=== PATIENT | male | born 1940 | race Caucasian/White ===

== ENCOUNTER → 2017-01-07 10:28 | Outpatient (CLI) | payer MEDICARE, OTHER ==
[~2017-01-07 10:28] MED LIST: AZOR 5-40 MG TA1 TAB PO; CIPRO500 MG PO; COMBIGAN OPHT DR5 ML EACH EYE; COUMADIN5 MG PO; FLAGYL500 MG PO; GLIPIZIDE10 MG PO; GLUCOPHAGE500 MG PO; LIPITOR20 MG PO; ROCEPHIN 1 GM/D51 G1 IV; TOPROL XL50 MG PO; XALATAN 0.0052.5 ML EACH EYE
== END | disposition home or self-care (01) ==
LOC: D.MRI 10:28 → D.LAB 10:45 → D.MRI 10:45
DX: R51 Headache (principal)

== ENCOUNTER → 2018-09-23 10:20 | Outpatient (CLI) | payer MEDICARE, OTHER ==
--- NOTE | ~2018-09-23 | ST ---
PATIENT:YARELIS WALTER MEDICAL RECORD: [id number] SEX: M LOCATION:[facility] ORDER #: ADMISSION DATE: 09/23/18 AGE OF PATIENT: 78 REFERRING PHYSICIAN: INTERPRETING PHYSICIAN: JUNI BRYSON MD DATE OF SERVICE: 09/23/2018 PROCEDURE: Nuclear stress test. INDICATIONS: Angina, shortness of breath, hypertension, abnormal ECG. He was exercised on standard Lexiscan protocol with 33 mCi of sestamibi injected at peak stress, 10 mCi were used previously for rest images. FINDINGS: Gated SPECT reveals preserved ejection fraction at 53% with good wall motion and thickening and brightening throughout all segments. SPECT imaging Cardiolite was used as myocardial fusion agent. There is homogeneous uptake throughout all segments at rest and stress with no evidence of inducible ischemia or previous infarction. OVERALL IMPRESSION: 1. This is a normal nuclear stress test with no evidence of inducible ischemia or previous infarction. 2. Gated SPECT reveals a preserved ejection fraction at 53%. In this patient with ongoing symptomatology, the current scan does not suggest the presence of hemodynamically significant coronary artery disease. Evaluate noncardiac etiology of chest pain. TRANSINT:[id number] Voice Confirmation ID: [id number] DOCUMENT ID: [id number] JUNI BRYSON MD CC: OLIVIA MON [id number] DICTATION DATE: 09/23/18 1606 RETAIL BANKER: 09/24/18 0928 [facility] CLI 09/23/[address] [address]
== END | disposition home or self-care (01) ==
LOC: D.HCCARDIO 10:20
PROVIDERS: ATTEND Internal Medicine Interventional Cardiology
DX: I20.9 Angina pectoris, unspecified (principal)

== ENCOUNTER → 2018-10-05 11:33 | Outpatient (CLI) | payer MEDICARE, OTHER ==
--- NOTE | 2018-10-07 15:03 | EC ---
PATIENT:YARELIS WLATER DATE OF SERVICE: 10/05/18 SEX: M MEDICAL RECORD: [id number] DATE OF : 36 LOCATION:[facility] AGE OF PATIENT: 78 ADMISSION DATE: 10/05/18 REFERRING PHYSICIAN: INTERPRETING PHYSICIAN: JUNI ELISE MD ECHOCARDIOGRAM REPORT ECHO CHARGES 4 ECHO COMPLETE Date: 10/05/18 CLINICAL DIAGNOSIS: ANGINA/MOODY/ABNORMAL EKG H/O A-FIB/HTN ECHOCARDIOGRAPHIC MEASUREMENTS (adult normal given) AC root (d.<3.7cm) 3.4 cm LV Septum d (<1.2 cm> 1.5 cm Valve Excursion 0.7 cm LV Septum (systole) 2.0 cm Left Atria (s.<4.0cm> 5.1 cm LVPW d(<1.2cm) 1.5 cm RV (d.<2.3cm) 3.8 cm LVPW (sytole) 2.1 cm LV diastole(<5.6CM) 4.3 cm MV E-F(>70mm/sec) cm LV systole 2.2 cm LVOT Diameter 2.1 cm MV exc.(>10mm) cm Est.ejection fraction (50-75%) % DOPPLER: LVIT cm/sec A cm/sec E 82.0 cm/sec LA cm/sec RVSP 45.0 mmHg LVOT 72.0 cm/sec AOP1/2T m/s Asc. Ao 316 cm/sec RVOT 64.0 cm/sec RA cm/sec PA 90.0 cm/sec AV Gradient Peak 40.0 mmHg AV Mean 24.3 mmHg AV Area 0.6 cm MV Gradient Peak 3.9 mmHg MV Mean 1.1 mmHg MV Area cm COMMENTS: OP - HC Chain Hoist Operator: 1 TODD SARAVANAN Chief Steward/Stewardess: 1 Dr. Elise TAPE# PACS Pericardial Effusion N DATE OF SERVICE: 10/05/2018 FINDINGS: 1. Left ventricular chamber size is mildly dilated. Left ventricular systolic function is mildly reduced. Overall ejection fraction is 40%. 2. Left atrium is enlarged at 5.1 cm. Right atrium and right ventricular chamber sizes are severely dilated. 3. Valvular structures: Aortic valve demonstrates viiqwmzn-ze-avmlgp aortic stenosis. Valve area calculates to 0.6 cm-squared with gradient of 40 mm across the valve. The remaining valvular structures have normal structure and motion. ECHOCARDIOGRAM REPORT [id number] YARELIS WALTER 4. Doppler interrogation elsewise reveals mild mitral regurgitation and moderate tricuspid regurgitation. No other valvular insufficiency or stenosis. Pulmonary systolic pressure is estimated at 45 mmHg. 5. No evidence of pericardial effusion or left ventricular thrombus. TRANSINT:[id number] Voice Confirmation ID: [id number] DOCUMENT ID: [id number] JUNI ELISE MD at 1503 CC: [id number] DICTATION DATE: 10/05/18 1556 SUPERVISOR BODY ASSEMBLY: 10/05/18 2310 DEP CLI 10/05/18 [id number] [place] [address]
== END | disposition home or self-care (01) ==
LOC: D.HCCARDIO 11:30
PROVIDERS: ATTEND Internal Medicine Interventional Cardiology
DX: R06.02 Shortness of breath (principal)

== ENCOUNTER 2018-10-24 09:31 | Outpatient (CLI) | payer MEDICARE, OTHER ==
--- NOTE | ~2018-10-24 | HEMODYNAMI ---
PATIENT:YARELIS WALTER MEDICAL RECORD: [id number] : 36 LOCATION:[facility] ADMISSION DATE: 10/24/18 Generatedon:10/24/201812:32 Patient name: YARELIS WALTER Patient #: [id number] SSN: : Date of study: 10/24/2018 Page: Of Hemodynamic Procedure Report Patient Data Patient Demographics Procedure consent was obtained First Name: YARELIS Gender: Male Last Name: JOSE ANGEL : 1940 Middle Initial: W Age: 78 year(s) Patient #: [id number] Race: Unknown Additional ID: [id number] Contact details [address]: [address] [place] [address] State: [place] City: [place] Zip code: [address] Past Medical History Allergies Allergen Reaction Date Comments Reported Other allergy 10/24/2018 ATORVASTATIN Admission Admission Data Admission Date: 10/24/2018 Admission Time: 9:31 Weight (lbs.): 220.46 Weight (kg.): 100 Lab Results Lab Result Date: 10/24/2018 Lab Result Time: 0:00 Biochemistry Name Units Result Min Max BUN mg/dl 16 --(---*)-- 7 18 Creatinine mg/dl 1 --(--*-)-- 0.6 1.3 CBC Name Units Result Min Max Hematocrit % 39.6 -*(----)-- 42 54 Hemoglobin g/dl 12.6 -*(----)-- 13.5 17.5 Procedure Procedure Types Cath Procedure Diagnostic Procedure LHC Coronaries only Sedation Charges Moderate Sedation up to 15 minutes PCI Procedure Coronary Stent Coronary Stent Initial Peripheral Cath Diagnostic Procedure Food Service Substitute Peripheral Procedures Lpklm-Eclvosk-Fiq-Off Four Vessel Arteriogram Procedure Description Procedure Date Procedure Date: 10/24/2018 Procedure Start Time: 12:09 Procedure End Time: 12:29 Procedure Staff Name Function Saúl Elise MD Performing Physician Mariela Soni RT Scrub Yudith Lopez RN Nurse Emely Sampson RT Monitor Procedure Data Cath Procedure Fluoroscopy Diagnostic fluoroscopy Total fluoroscopy Time: 4.2 time: 4.2 min min Diagnostic fluoroscopy Total fluoroscopy dose: dose: 1130 mGy 1130 mGy Contrast Material Contrast Material Type Amount (ml) Isovue 300 153 Entry Location Entry Primary Successful Side Size Upsize Upsize Entry Closure Succes sful Closure Location (Fr) 1 (Fr) 2 (Fr) Remarks Device Remarks Femoral Right 5 Fr 6 Fr Exoseal artery Short Estimated blood loss: 10 ml Diagnostic catheters Device Type Used For End Catheter Placement MULTIPACK Pigtail 5 Fr Procedure catheter MULTIPACK JL 4.0 5Fr Procedure catheter MULTIPACK 3DRC 5Fr Procedure catheter MULTIPACK Pigtail 5 Fr Procedure catheter Procedure Complications No complications Procedure Medications Medication Administration Route Dosage Oxygen etCO2 Nasal cannula 2 l/min Lidocaine 2% added to field 20 Heparin Flush Bag added to field 2 bags (1000units/500ml NS) 0.9% NaCl I.V. 100 ml/hr Versed I.V. 1 mg Fentanyl I.V. 50 mcg Heparin Bolus I.V. 4000 units Integrilin (Bolus I.V. 9 ml 2mg/ml) Versed I.V. 1 mg Fentanyl I.V. 50 mcg Plavix P.O. 600 mg Hemodynamics Rest HGB: 12.6 (g/dl) Heart Rate: 78 (bpm) Snapshots Pre Cath Intra NCS Post Cath Vital Signs Time Heart Resp SPO2 etCO2 NIBP (mmHg) Rhythm Pain Sedation Rate (ipm) (%) (mmHg) Status Level (bpm) 11:52:28 70 18 92 27.8 112/81(96) A-Fib 0 (11) 10(A) , No pain 11:56:30 69 19 93 11.2 111/82(94) A-Fib 0 (11) 10(A) , No pain 12:00:33 72 17 94 14.2 106/76(94) A-Fib 0 (11) 10(A) , No pain 12:04:35 65 20 96 0 112/72(95) A-Fib 0 (11) 10(A) , No pain 12:08:41 76 12 97 0 117/66(105) A-Fib 0 (11) 10(A) , No pain 12:12:53 64 15 94 18.8 115/66(87) A-Fib 0 (11) 9(A) , No pain 12:17:00 73 20 92 1.5 105/65(88) A-Fib 0 (11) 9(A) , No pain 12:21:15 81 14 96 11.2 113/71(90) A-Fib 0 (11) 9(A) , No pain 12:25:21 72 17 94 21.8 102/69(84) A-Fib 0 (11) 10(A) , No pain 12:29:23 77 14 95 0 102/68(89) A-Fib 0 (11) 10(A) , No pain Medications Time Medication Route Dose Verified Delivered Reason Notes Effectiveness by by 11:53:53 Oxygen etCO2 2 Saúl Buffie used for Nasal l/min Arik Lopez RN procedure cannula 11:54:00 Lidocaine 2% added 20ml Saúl Saúl for local to vial Arik Elise MD anesthetic field 11:54:07 Heparin Flush added 2 Saúl Saúl used for Bag to bags Arik Elise MD procedure (1000units/500ml field NS) 11:54:16 0.9% NaCl I.V. 100 Saúl Buffie Per physician ml/hr Arik Lopez RN 12:09:54 Versed I.V. 1 mg Saúl Elkinsie for sedation Arik Lopez RN 12:10:00 Fentanyl I.V. 50 Saúl Buffie for sedation mcg Arik Lopez RN 12:15:22 Versed I.V. 1 mg Saúl Buffie for sedation Arik Lopez RN 12:15:26 Fentanyl I.V. 50 Saúl Elkinsie for sedation mcg Arik Lopez RN 12:19:40 Heparin Bolus I.V. 4000 Saúl Elkinsie for verif ied units Arik Lopez RN anticoagulation with dr elise 12:20:57 Integrilin I.V. 9 ml Saúl Elkinsie for waste d 1 (Bolus 2mg/ml) Arik Lopez RN antiplatelet ml of therapy vial 12:29:21 Plavix P.O. 600 Saúl Zurita for mg Arik Lopez RN antiplatelet therapy Procedure Log Time Note 11:34:44 Diagnostic Cath Status : Elective 11:35:17 Mariela Soni RT(R) sent for patient. Start room use. 11:35:18 Time tracking: Regular hours (M-F 7:00 - 5:00) 11:35:22 Plan of Care:Hemodynamics will remain stable., Cardiac rhythm will remain stable., Comfort level will be maintained., Respiratory function will remain adequate., Patient/ family verbilizes understanding of procedure., Procedure tolerated without complication., Recovers from procedure without complications.. 11:51:20 Patient received from Pre/Post Procedure Room to CCL 2 Alert and oriented. Tansferred to table in Supine position. 11:51:21 Warm blankets applied, and sarika hugger turned on for patient comfort. 11:51:23 Signed procedure consent form obtained from patient. 11:51:23 ECG and BP/O2 sat monitors applied to patient. 11:51:24 Vital chart was started 11:51:25 Baseline sample Acquired. 11:51:31 Rhythm: sinus rhythm 11:51:32 Full Disclosure recording started 11:51:44 H&P Date Dictated: 10/12/2018 Within 30 days and on chart., H&P Addendum completed by physician on day of procedure. (MUST COMPLETE FOR ALL OUTPATIENTS). 11:51:44 Pre-procedure instructions explained to patient. 11:51:45 Pre-op teaching completed and patient verbalized understanding. 11:51:46 Family in patients room. 11:51:50 Patient NPO since Midnight. 11:52:07 Patient allergic to Other allergyATORVASTATIN 11:52:09 Is patient on blood thinner?Yes 11:52:29 COUMADIN HELD SINCE WEDNESDAY. PLAVIX HELD WEDNESDAY 11:52:31 Patient diabetic? Yes. 11:52:37 If diabetic: On Metformin? Yes 11:52:41 If on Metformin: Last Dose? 10/22/2018 11:52:44 Previous problem with sedation/anesthesia? No ? 11:52:45 Snore? Yes 11:52:47 Sleep apnea? No 11:52:54 Deviated septum? No 11:52:56 Opens mouth fully? Yes 11:52:57 Sticks out tongue? Yes 11:52:59 Airway obstruction? No ? 11:53:05 Dentures? Yes PLATE IN TIGHT 11:53:08 Pre procedure: right dorsailis pedis pulse 1+ Palpable, but thready & weak; easily obliterated 11:53:11 Patient pain scale 0/10 ?. 11:53:15 IV patent on arrival in left hand with 0.9% NaCl at [facility]. 11:53:53 Oxygen 2 l/min etCO2 Nasal cannula was administered by Yudith Lopez RN; used for procedure; 11:54:00 Lidocaine 2% 20ml vial added to field was administered by Saúl Elise MD; for local anesthetic; 11:54:07 Heparin Flush Bag (1000units/500ml NS) 2 bags added to field was administered by Saúl Elise MD; used for procedure; 11:54:16 0.9% NaCl 100 ml/hr I.V. was administered by Yudith Lopez RN; Per physician; ::44 Lab Result : BUN 16 mg/dl ::44 Lab Result : Creatinine 1 mg/dl ::44 Lab Result : Hemoglobin 12.6 g/dl ::44 Lab Result : Hematocrit 39.6 % 11:55:46 Lab results completed and on chart. 11:55:50 Right groin area was prepped with chlora-prep and draped in sterile fashion 11:55:51 Alarms reviewed by R. N. 11:55:51 Sharps counted by scrub and verified by R.N. 11:55:53 Use device set Femoral Dx 11:55:54 ACIST Syringe (55155) opened to sterile field. 11:55:54 Bag Decanter (2002S) opened to sterile field. 11:55:55 ACIST Hand Control (42649) opened to sterile field. 11:55:55 ACIST Manifold (84444) opened to sterile field. 11:55:56 Tegaderm 4 x 4 (1626W) opened to sterile field. 11:55:57 Medline Cath Pack ([id number]) opened to sterile field. 11:55:57 DIAGNOSTIC WIRE .035 260cm J wire (274105) opened to sterile field. 11:55:59 DIAGNOSTIC Multipack 5Fr catheter set (NU0692) opened to sterile field. 11:56:00 SHEATH 5FR Gregory (SRG813) opened to sterile field. 11:57:29 Zero performed for pressure channel P1 11:57:34 Zero performed for pressure channel P1 12:08:15 --------ALL STOP TIME OUT------ 12:08:15 Final Timeout: patient, procedure, and site verified with staff and physician. All members of the team are in agreement. 12:08:16 Right groin site verified by team. 12:08:19 Maximum allowable Isovue 300 dose 300ml. Physician notified. (300ml for normal creatinines. For patients with creatinine of 1.7 or higher multiply weight(kg) x 5 divided by creatinine.) 12:: Fire Safety Assessment: A--An alcohol-based skin anteseptic being used preoperatively., C--Open oxygen or nitrous oxide is being used., D--An ESU, laser, or fiber-optic light is being used. 12::24 Physical assessment completed. ASA score P 3 - A patient with severe systemic disease as per Saúl Elise MD. 12:: Sedation plan: IV Moderate Sedation Medication:Versed, Fentanyl 12:: Procedure started. :: Local anesthetic to right femoral artery with Lidocaine 2% by Saúl Elise MD.INITIAL ACCESS ONLY 12:09:39 A 5 Fr sheath was inserted into the Right Femoral artery 12::54 Versed 1 mg I.V. was administered by Yudith Lopez RN; for sedation; 12::00 Fentanyl 50 mcg I.V. was administered by Yudith Lopez RN; for sedation; 12:10: A MULTIPACK Pigtail 5 Fr catheter was advanced over the wire and used for Procedure. 12:11:11 Catheter removed. 12:11:20 UNABLE TO CROSS VALVE 12:11:24 A MULTIPACK JL 4.0 5Fr catheter was advanced over the wire and used for Procedure. 12:13:05 LCA angiography performed. 12:13:07 Catheter exchanged over wire. 12:13:19 A MULTIPACK 3DRC 5Fr catheter was advanced over the wire and used for Procedure. 12:14:08 SHEATH 6FR Gregory (MZZ839) opened to sterile field. 12:14:08 CHOICE PT Extra Support 182cm wire ([id number]) opened to sterile field. 12:14:08 INFLATOR Merit BasixCompak (EG1809) opened to sterile field. 12:14:52 Patient Weight : 220.46 lbs 12:15:00 RCA angiography performed. 12:15:19 Right carotid angiography performed. 12:: Versed 1 mg I.V. was administered by Yudith Lopez RN; for sedation; 12:15:26 Fentanyl 50 mcg I.V. was administered by Yudith Lopez RN; for sedation; 12:16:25 Left carotid angiography performed. 12:16:29 Catheter exchanged over wire. 12:17:52 A MULTIPACK Pigtail 5 Fr catheter was advanced over the wire and used for Procedure. 12:17:58 Abdominal angiogram w/ runoff was performed. 12:18:22 Right leg runoff performed. 12:18:36 Left leg runoff performed. 12:18:51 Catheter removed. 12:19:03 Procedure type changed to Cath procedure, Diagnostic procedure, LHC, Coronaries only, Sedation Charges, Moderate Sedation up to 15 minutes, PCI procedure, Coronary Stent, Coronary Stent Initial, Peripheral Cath Diagnostic Procedure, Food Service Substitute Peripheral Procedures, Sozpg-Jaeghui-Lps-Off, Four Vessel Arteriogram 12:19:40 Heparin Bolus 4000 units I.V. was administered by Yudith Lopez RN; for anticoagulation; verified with dr elise 12:19:52 Sheath upsized to a 6 Fr Short. 12:19:58 GUIDE 6FR HS II SH catheter ([id number]) opened to sterile field. 12:19:59 6 Fr HS 2 SH guide catheter was inserted over the wire 12:20:57 Integrilin (Bolus 2mg/ml) 9 ml I.V. was administered by Yudith Lopez RN; for antiplatelet therapy; wasted 1 ml of vial 12:21:49 CHOICE ES 182 wire advanced. 12:22:38 Place stent Inflation Number: 1 A INTEGRITY RX 2.5 x 14 stent ([id number]) was prepped and advanced across the Dist RCA. The stent was deployed at 13 BAILEY for 0:00 (min:sec). 12:22:42 Stent catheter was removed intact over wire. 12:23:53 Place stent Inflation Number: 1 A INTEGRITY RX 3.0 x 22 stent ([id number]) was prepped and advanced across the Mid RCA. The stent was deployed at 13 BAILEY for 0:10 (min:sec). 12:24:05 Stent catheter was removed intact over wire. 12:24:18 Wire removed. 12:24:18 Guide catheter removed. 12:24:40 EXOSEAL 6Fr (EX600) opened to sterile field. 12:24:51 Sheath removed intact; hemostasis achieved with Exoseal to the Right Femoral artery. 12:24:53 Procedure ended.(Physican Out) 12:26:23 Fluoroscopy time 04.20 minutes. 12::35 Fluoroscopy dose: 1130 mGy 12::35 Flurop Dose total: 1130 12::40 Contrast amount:Isovue 300 153ml. 12::41 Sharps counted by scrub and verified by R.N. 12::44 Post-op/insertion site Right Femoral artery dressed using a 4 x 4 and Tegaderm. 12::50 Post-procedure physical assessment completed. ASA score P 3 - A patient with severe systemic disease as per Saúl Elise MD. 12::52 Post procedure rhythm: sinus rhythm 12::55 Estimated blood loss: 10 ml 12::56 Post procedure instruction explained to patient.Patient verbalizes understanding. 12::56 Patient needs reinforcement of post procedure teaching. 12:29:21 Plavix 600 mg P.O. was administered by Yudith Lopez RN; for antiplatelet therapy; 12::28 Procedure and supply charges have been captured, reviewed, submitted and are correct. 12:29:30 Procedure Complication : No complications 12::32 Vital chart was stopped 12::33 See physician's report for complete and final results. 12::34 Report given to Pre/Post Procedure Room. 12:29:36 Patient transfered to Pre/Post Procedure Room with Bed. 12:29:37 Procedure ended. 12:29:37 Full Disclosure recording stopped 12::41 End room use (Document Last) Intervention Summary Intervention Notes Time ActionType Lesion and Equipment Action# Pressure Duration Attributes Used 12:22:38 Place stent Dist RCA INTEGRITY RX 1 13 00:00 2.5 x 14 stent ([id number]) 12:23:53 Place stent Mid RCA INTEGRITY RX 1 13 00:10 3.0 x 22 stent ([id number]) Device Usage Item Name Manufacture Quantity Catalog Number Hospital Part Current Mini [facility] Lot# / Charge Number Stock Stock Serial# Code ACIST Acist 1 86660 732342 378957 658056 20 Syringe Medical (77874) Systems Inc Bag Decanter Microtek 1 076882 09946 107553 5 () Medical Inc. ACIST Hand Acist 1 97387 449634 473883 474436 5 Control Medical (32141) Systems Inc ACIST Acist 1 71707 614157 326655 495154 5 Chekkt.com (43266) Systems Inc Tegaderm 4 x 3M 1 1626W 671719 149100 096316 5 4 (1626W) Medline Cath Medline 1 [id number] 883729 30874 796959 5 Pack ([id number]) DIAGNOSTIC [facility] [place] 1 023342 938091 966919 998837 30 WIRE .035 260cm J wire (680532) DIAGNOSTIC Cardinal 1 TQ1417 502964 14468 281493 30 Multipack Health 5Fr catheter set (WZ0638) SHEATH 5FR Terumo 1 IRA179 029998 424493 943461 5 Gregory (JKN962) MULTIPACK Cardinal 1 732316 5 Pigtail 5 Fr Health catheter MULTIPACK JL Cardinal 1 232913 5 4.0 5Fr Health catheter MULTIPACK Cardinal 1 638836 5 3DRC 5Fr Health catheter SHEATH 6FR Terumo 1 APT666 777130 271366 674669 40 Gregory (VXE872) CHOICE PT Kegley 1 [id number] 138529 364050 579960 5 Extra Scientific Support 182cm wire (0244945V0) INFLATOR Merit 1 WW2669 257374 700063 200379 15 [facility] Medical BasixCompak (IR0041) INTEGRITY RX Medtronic 1 [id number] 125545 158407 864381 5 [id number] 2.5 x 14 stent ([id number]) INTEGRITY RX Medtronic 1 [id number] 353613 722719 761632 5 [id number] 3.0 x 22 stent ([id number]) EXOSEAL 6Fr Cardinal 1 EX600 534863 369257 581711 10 (EX600) Health GUIDE 6FR HS Medtronic 1 [id number] 542866 84238 898807 1 II SH catheter (UV5EDISML) Signature Audit Zimmerman Stage Time Signature Unsigned Intra-Procedure 10/24/2018 Emely Sampson 12:32:04 PM RT(R) Signatures Monitor : Emely Sampson Signature : RT Date : Time : [facility] [address] [facility] [place] [address]
[2018-10-24] MEDS ORDERED: K-TAB10 MEQ PO (09:45)
[2018-10-24] MEDS ORDERED: FUROSEMIDE40 MG PO (09:45)
[2018-10-24] MEDS ORDERED: JANUVIA100 MG PO (09:45)
[2018-10-24] MEDS ORDERED: COUMADIN5 MG PO (09:46)
[2018-10-24] MEDS ORDERED: TRUSOPT 2 % OPT10 ML EACH EYE (09:46)
[2018-10-24 10:01] VITALS: BP 118/80; BMI 31.6
[2018-10-24 10:13] LABS: BASOPHILS 0.7 % (0-2); EOSINOPHILS 8.6 % (0-7); HEMATOCRIT 39.6 % (42.0-54.0); HEMOGLOBIN 12.6 g/dL (13.5-17.5); IMMATURE GRANULOCYTES 0.2 % (0-5); LYMPHOCYTES 21.5 % (15-50); MCH 26.6 pg (26.0-34.0); MCHC 31.8 g/dL (31.0-37.0); MCV 83.5 fL (80.0-100.0); MEAN PLATELET VOLUME 9.8 fL (7.4-10.4); MONOCYTES 11.1 % (2-11); NEUTROPHILS 57.9 % (40-80); PLATELET COUNT 188 10x3/uL (130-400); RBC 4.74 10x6/uL (4.20-6.10); RDW 15.7 % (11.5-14.5); WBC 5.6 10x3/uL (4.8-10.8)
[2018-10-24 10:19] LABS: INR 1.42 (0.85-1.17); PROTIME 16.7 SECONDS (11.6-15.0)
[2018-10-24 10:26] LABS: CALC OSMOLALITY 280 mosm/kg (275-300); CALCIUM 9.1 mg/dL (8.5-10.1); CARBON DIOXIDE 27.9 mmol/L (21.0-32.0); CHLORIDE - SERUM 104 mmol/L (98-107); GLUCOSE 111 mg/dL (74-106); POTASSIUM - SERUM 4.2 mmol/L (3.5-5.1); SODIUM 140 mmol/L (136-145); UREA NITROGEN 16 mg/dL (7-18); eGFR NON AFRICAN AMERICAN 76 mL/min (90-120)
[2018-10-24] MEDS ORDERED: BAYER CHEWABLE81 MG PO (12:54)
[2018-10-24] MEDS ORDERED: PLAVIX75 MG PO (12:54)
--- NOTE | 2018-10-26 14:39 | OP ---
PATIENT NAME: YARELIS WALTER MEDICAL RECORD: [id number] :38 LOCATION:D[facility] ADMISSION DATE: SURGEON: JUNI BRYSON MD DATE OF OPERATION: 10/24/2018 PROCEDURES: 1. Four-vessel carotid and vertebral angiography. 2. Abdominal aortography. 3. Aortofemoral runoff. INDICATIONS: Claudication, peripheral vascular disease, and carotid vascular disease. PROCEDURE IN DETAIL: After informed consent was obtained with detailed description of risks and benefits as well as alternative therapies, the patient elected to proceed with angiogram. FINDINGS: There was subselection of each subclavian as well as left carotid. RIGHT SIDE: The common, internal, and external carotids had mild plaquing, none greater than 10% to 20%. No flow-limiting stenosis. Vertebral artery has no significant disease. LEFT SYSTEM: The common, internal, and external carotids have mild plaquing, none greater than 10% to 20%. No flow-limiting stenosis. Vertebral artery has no significant disease. Abdominal aortography was performed. Catheter was pulled down for aortofemoral runoff. Abdominal aortography reveals no significant abdominal aortic disease. No dissection or aneurysm formation. RIGHT LEG: A. Iliac: The common, internal, and external iliacs are tortuous with only mild irregularities. No flow-limiting stenosis. No stenosis greater than 20%. B. Femoral system: The common, superficial, and deep femorals have mley-hn-fdxciabi irregularities, but no flow-limiting stenosis. C. Popliteal and infrapopliteal vessels have 3-vessel runoff to the foot, although moderately diffusely diseased. LEFT LEG: A. Iliac: The common, internal, and external iliacs are tortuous with only mild irregularities. No flow-limiting stenosis. No stenosis greater than 20%. B. Femoral system: The common, superficial, and deep femorals have mllj-dm-edghsaqj irregularities, but no flow-limiting stenosis. C. Popliteal and infrapopliteal vessels have 3-vessel runoff to the foot, although moderately diffusely diseased. OVERALL IMPRESSION: 1. No significant carotid vascular disease is present. 2. No significant lower extremity disease is present. Continue medical management of carotid vascular and lower extremity peripheral vascular disease. TRANSINT:[id number] Voice Confirmation ID: [id number] DOCUMENT ID: [id number] OPERATIVE REPORT [id number] YARELIS WALTER JEFFREY MD at 1439 CC: [id number] DICTATION DATE: 10/24/18 1229 COMPLIANCE CONSULTANT: 10/24/18 1829 DEP CLI 10/24/18 [address] [place] [address]
--- NOTE | 2018-10-26 14:39 | OP ---
PATIENT NAME: YARELIS WALTER MEDICAL RECORD: [id number] :38 LOCATION:D.CAT ADMISSION DATE: SURGEON: JUNI BRYSON MD DATE OF OPERATION: 10/24/2018 PROCEDURES: 1. PTCA and stent, RCA. 2. Left heart catheterization. 3. Selective coronary angiography. INDICATIONS: Aortic stenosis, angina, and coronary artery disease. PROCEDURE IN DETAIL: After informed consent was obtained with detailed description of risks and benefits as well as alternative therapies, the patient elected to proceed with angiogram and angioplasty. The right femoral area was prepped and draped in normal sterile fashion. The right femoral artery was cannulated via modified Seldinger technique with placement of 6-Romanian sheath. All catheters were exchanged through this sheath. FINDINGS: No left ventriculogram was performed due to inability to cross the stenotic aortic valve. SELECTIVE CORONARY ANGIOGRAPHY: 1. Left main has no significant angiographic disease. 2. Left anterior descending has 80% to 90% stenosis proximally and 80% to 90% stenosis in the mid distal vessel. 3. Left circumflex has 80% to 90% stenosis in the mid vessel. 4. Right coronary artery has 90% stenosis in the mid vessel and 80% stenosis distally. PTCA AND STENT OF THE RCA: Stents used were 3.0 x 22 mm integrity and 2.5 x 14 mm Integrity. Result was 0% residual stenosis. OVERALL IMPRESSION: Successful PTCA and stent of the RCA, going from 90% initial stenosis to 0% residual. PLAN: PTCA and stent of LAD and circumflex in the near future. TRANSINT:[id number] Voice Confirmation ID: [id number] DOCUMENT ID: [id number] JUNI BRYSON MD at 1439 CC: [id number] DICTATION DATE: 10/24/18 1229 EVP OPERATIONS: 10/24/[address] [facility] CLI 10/24/18 [place] [id number]
== END 2018-10-24 16:30 | disposition home or self-care (01) ==
LOC: D.CATH 09:31
PROVIDERS: Internal Medicine Interventional Cardiology
DX: I25.119 Atherosclerotic heart disease of native coronary artery with unspecified angina pectoris (principal); I35.0 Nonrheumatic aortic (valve) stenosis; I70.203 Unspecified atherosclerosis of native arteries of extremities, bilateral legs; I65.23 Occlusion and stenosis of bilateral carotid arteries; Z01.812 Encounter for preprocedural laboratory examination

== ENCOUNTER 2018-10-26 07:33 | Outpatient (CLI) | payer MEDICARE, OTHER ==
[~2018-10-26] VITALS: Ht 177.8 cm; Wt 95.5 kg
--- NOTE | ~2018-10-26 | HEMODYNAMI ---
PATIENT:YARELIS WALTER MEDICAL RECORD: [id number] : 36 LOCATION:DEDITA ADMISSION DATE: 10/26/18 Generatedon:10/26/201810:06 Patient name: YARELIS WALTER Patient #: [id number] SSN: : Date of study: 10/26/2018 Page: Of Hemodynamic Procedure Report Patient Data Patient Demographics Procedure consent was obtained First Name: YARELIS Gender: Male Last Name: JOSE ANGEL : 1940 Middle Initial: W Age: 78 year(s) Patient #: [id number] Race: Unknown Additional ID: [id number] Contact details [address]: [address] [place] [address] State: [place] City: [place] Zip code: [address] Past Medical History Allergies Allergen Reaction Date Comments Reported Other allergy 10/24/2018 ATORVASTATIN Other allergy 10/26/2018 carisoprodol, atorvastatin Admission Admission Data Admission Date: 10/26/2018 Admission Time: 7:33 Admit Source: Other Lab Results Lab Result Date: 10/26/2018 Lab Result Time: 0:00 Biochemistry Name Units Result Min Max BUN mg/dl 15 --(--*-)-- 7 18 Creatinine mg/dl 1.1 --(--*-)-- 0.6 1.3 CBC Name Units Result Min Max Hematocrit % 36.8 *-(----)-- 42 54 Hemoglobin g/dl 11.9 *-(----)-- 13.5 17.5 Procedure Procedure Types Cath Procedure PCI Procedure Coronary Stent Coronary Stent Initial x2 Procedure Description Procedure Date Procedure Date: 10/26/2018 Procedure Start Time: 9:47 Procedure End Time: 10:05 Procedure Staff Name Function Saúl Elise MD Performing Physician Sadiq Hancock RT Monitor Mariela Soni RT Scrub Melyssa Molina RN Nurse Procedure Data Cath Procedure Fluoroscopy Diagnostic fluoroscopy Total fluoroscopy Time: 5.8 time: 5.8 min min Diagnostic fluoroscopy Total fluoroscopy dose: 750 dose: 750 mGy mGy Contrast Material Contrast Material Type Amount (ml) Isovue 370 92 Entry Location Entry Primary Successful Side Size Upsize Upsize Entry Closure Succes sful Closure Location (Fr) 1 (Fr) 2 (Fr) Remarks Device Remarks Femoral Left 6 Fr Exoseal artery Short Procedure Complications No complications Procedure Medications Medication Administration Route Dosage 0.9% NaCl I.V. 100 ml/hr Oxygen etCO2 Nasal cannula 2 l/min Lidocaine 2% added to field 20 Heparin Flush Bag added to field 2 bags (1000units/500ml NS) Versed I.V. 2 mg Fentanyl I.V. 50 mcg Heparin Bolus I.V. 4000 units Fentanyl I.V. 50 mcg Hemodynamics Rest Pre Cath Intra NCS Post Cath Vital Signs Time Heart Resp SPO2 etCO2 NIBP (mmHg) Rhythm Pain Sedation Rate (ipm) (%) (mmHg) Status Level (bpm) 9:31:43 72 16 97 20 136/90(112) NSR 0 (11) 10(A) , No pain 9:35:59 123 17 100 27.4 128/80(109) NSR 0 (11) 10(A) , No pain 9:40:11 79 16 100 30 107/85(101) NSR 0 (11) 10(A) , No pain 9:44:19 65 16 97 30 122/79(100) NSR 0 (11) 10(A) , No pain 9:48:33 65 14 98 30.6 123/78(99) NSR 0 (11) 10(A) , No pain 9:52:47 68 19 92 11.9 108/75(91) NSR 0 (11) 9(A) , No pain 9:56:57 79 17 98 12 113/76(93) NSR 0 (11) 9(A) , No pain 10:01:07 69 16 98 23 115/76(100) NSR 0 (11) 10(A) , No pain 10:05:16 75 20 97 11.2 111/75(92) NSR 0 (11) 10(A) , No pain Medications Time Medication Route Dose Verified Delivered Reason Notes Effectiveness by by 9:33:09 0.9% NaCl I.V. 100 Saúl Ragsdale used for ml/hr Arik Molina instructor military science 9:33:16 Oxygen etCO2 2 Saúl Melyssa used for Nasal l/min Arik Molina procedure cannula RN 9:33:22 Lidocaine 2% added 20ml Saúl Saúl for local to vial Arik Elise MD anesthetic field 9:33:27 Heparin Flush added 2 Saúl Saúl used for Bag to bags Arik Elise MD procedure (1000units/500ml field NS) 9:44:25 Versed I.V. 2 mg Saúl Melyssa for sedation Arik Molina RN 9:44:35 Fentanyl I.V. 50 Saúl Melyssa for sedation mcg Arik Molina RN 9:49:34 Heparin Bolus I.V. 4000 Saúl Melyssa for verifi ed units Arik Molina anticoagulation with Dr. JAIRON Elise 9:49:44 Fentanyl I.V. 50 Saúl Melyssa for sedation mcg Arik Molina humidifier maintenance worker Log Time Note 9:10:11 Mariela Soni RT(R) sent for patient. Start room use. 9:24:47 Informed consent obtained and on chart 9:24:51 Admit Source: Other 9:25:09 Diagnostic Cath status Elective 9:25:18 Time tracking: Regular hours (M-F 7:00 - 5:00) 9:25:21 Plan of Care:Hemodynamics will remain stable., Cardiac rhythm will remain stable., Comfort level will be maintained., Respiratory function will remain adequate., Patient/ family verbilizes understanding of procedure., Procedure tolerated without complication., Recovers from procedure without complications.. 9:25:25 Patient received from Pre/Post Procedure Room to CCL 1 Alert and oriented. Tansferred to table in Supine position. 9:25:26 Warm blankets applied, and sarika hugger turned on for patient comfort. 9:25:26 Correct patient and procedure confirmed by team. 9:25:27 ECG and BP/O2 sat monitors applied to patient. 9:25:28 Pre-procedure instructions explained to patient. 9:25:29 Pre-op teaching completed and patient verbalized understanding. 9:25:30 Family in waiting room. 9:25:31 Patient NPO since Midnight. 9:26:00 Patient allergic to Other allergycarisoprodol, atorvastatin 9:26:01 Is the patient allergic to Iodine/contrast media? No. 9::35 Lab Result : BUN 15 mg/dl 9::35 Lab Result : Hemoglobin 11.9 g/dl 9::35 Lab Result : Creatinine 1.1 mg/dl 9::35 Lab Result : Hematocrit 36.8 % 9:30:43 Vital chart was started 9:33:09 0.9% NaCl 100 ml/hr I.V. was administered by Melyssa Molina RN; used for procedure; 9:33:16 Oxygen 2 l/min etCO2 Nasal cannula was administered by Melyssa Molina RN; used for procedure; 9:33:22 Lidocaine 2% 20ml vial added to field was administered by Saúl Elise MD; for local anesthetic; 9:33:27 Heparin Flush Bag (1000units/500ml NS) 2 bags added to field was administered by Saúl Elise MD; used for procedure; 9:39:02 Is patient on blood thinner?Yes 9:42:05 Patient diabetic? Yes. 9:42:06 If diabetic: On Metformin? Yes 9:42:19 If on Metformin: Last Dose? 10/22/2018 9:42:20 ----Pre-sedation anethsthesia assessment.---- 9:42:22 Previous problem with sedation/anesthesia? No ? 9:42:24 Snore? Yes 9:42:25 Sleep apnea? No 9:42:27 Deviated septum? No 9:42:28 Opens mouth fully? Yes 9:42:30 Sticks out tongue? Yes 9:42:35 Airway obstruction? No ? 9:42:38 Dentures? Yes in tight 9:42:42 Pre procedure: left dorsailis pedis pulse 1+ Palpable, but thready & weak; easily obliterated 9:42:45 Patient pain scale 0/10 ?. 9:42:52 IV patent on arrival in right antecubital with 0.9% NaCl at 10ml/hr. 9:42:55 Lab results completed and on chart. 9:42:58 Left groin area was prepped with chlora-prep and draped in sterile fashion 9:42:59 Alarms reviewed by R. N. 9:43:00 Sharps counted by scrub and verified by R.N. 9:43:04 Physician arrived 9:43:04 --------ALL STOP TIME OUT------ 9:43:04 Final Timeout: patient, procedure, and site verified with staff and physician. All members of the team are in agreement. 9:43:06 Left groin site verified by team. 9:43:10 Maximum allowable Isovue 300 dose 300ml. Physician notified. (300ml for normal creatinines. For patients with creatinine of 1.7 or higher multiply weight(kg) x 5 divided by creatinine.) 9:43:13 Fire Safety Assessment: A--An alcohol-based skin anteseptic being used preoperatively., C--Open oxygen or nitrous oxide is being used., D--An ESU, laser, or fiber-optic light is being used. 9:43:16 Physical assessment completed. ASA score P 2 - A patient with mild systemic disease as per Saúl Elise MD. 9:43:19 Sedation plan: IV Moderate Sedation Medication:Versed, Fentanyl 9:44:25 Versed 2 mg I.V. was administered by Melyssa Molina RN; for sedation; 9:44:35 Fentanyl 50 mcg I.V. was administered by Meylssa Molina RN; for sedation; 9:46:55 ACIST Syringe (48775) opened to sterile field. 9:46:55 Bag Decanter (2002S) opened to sterile field. 9:46:57 Medline Cath Pack ([id number]) opened to sterile field. 9:46:58 DIAGNOSTIC WIRE .035 260cm J wire (211048) opened to sterile field. 9:47:00 ACIST Hand Control (57364) opened to sterile field. 9:47:00 ACIST Manifold (28071) opened to sterile field. 9:47:01 Tegaderm 4 x 4 (1626W) opened to sterile field. 9:47:12 INFLATOR Merit BasixCompak (WS9226) opened to sterile field. 9:47:18 CHOICE PT Extra Support 182cm wire ([id number]) opened to sterile field. 9:47:22 EXOSEAL 6Fr (EX600) opened to sterile field. 9:47:23 SHEATH 6FR [place] (ZBQ654) opened to sterile field. 9:47:34 GUIDE 6FR XB 4.0 catheter ([id number]) opened to sterile field. 9:47:43 Procedure started. 9:47:44 Full Disclosure recording started 9:47:56 Local anesthetic to left femerol artery with Lidocaine 2% by Saúl Elise MD.INITIAL ACCESS ONLY 9:48:03 A 6 Fr Short sheath was inserted into the Left Femoral artery 9:48:06 Zero performed for pressure channel P1 9:48:24 6 Fr xb 4 guide catheter was inserted over the wire 9:48:47 cptes wire advanced. 9:49:34 Heparin Bolus 4000 units I.V. was administered by Melyssa Molina RN; for anticoagulation; verified with Dr. Elise 9:49:44 Fentanyl 50 mcg I.V. was administered by Melyssa Molina RN; for sedation; 9:50:44 The INTEGRITY RX 2.5 x 18 stent ([id number]) was advanced and then removed because of failure to cross lesion 9:51:33 Inflate balloon Inflation number: 1 A EUPHORA 2.5 x 15 Balloon ([id number]) was prepped and advanced across the Mid CX, then inflated to 19 BAILEY for 0:13 (min:sec). 9:51:34 Balloon removed over the wire. 9:51:53 Procedure type changed to Cath procedure, PCI procedure, Coronary Stent, Coronary Stent Initial x2 9:53:38 Inflate balloon Inflation number: 2 A INTEGRITY RX 2.5 x 18 stent ([id number]) was prepped and advanced across the Mid CX, then inflated to 13 BAILEY for 0:10 (min:sec). 9:54:21 Stent catheter was removed intact over wire. 9:54:23 Wire removed. 9:54:31 new cptes wire advanced. 9:55:07 CHOICE PT Extra Support 182cm wire ([id number]) opened to sterile field. 10:00:41 WHISPER 190cm wire ([id number]) opened to sterile field. 10:00:59 Wire removed. 10:01:02 whisper wire advanced. 10:02:20 Place stent Inflation Number: 1 A INTEGRITY RX 2.25 x 18 stent ([id number]) was prepped and advanced across the Mid LAD. The stent was deployed at 17 BAILEY for 0:10 (min:sec). 10:02:24 Stent catheter was removed intact over wire. 10:02:24 Wire removed. 10:02:25 Guide catheter removed. 10:02:33 Sheath removed intact; hemostasis achieved with Exoseal to the Left Femoral artery. 10:02:35 Procedure ended.(Physican Out) 10:03:18 Fluoroscopy time 05.80 minutes. 10:03:38 Flurop Dose total: 750 10:03:38 Fluoroscopy dose: 750 mGy 10:03:51 Contrast amount:Isovue 370 92ml. 10:04:03 Sharps counted by scrub and verified by R.N. 10:04:04 Insertion/operative site no bleeding no hematoma. 10:04:07 Post-op/insertion site Left Femoral artery dressed using a 4 x 4 and Tegaderm. 10:04:22 Post left femerol artery:stable 10:04:23 Post Procedure Pulses reassessed and unchanged 10:04:26 Post procedure: left dorsailis pedis pulse 1+ Palpable, but thready & weak; easily obliterated. 10:04:29 Post procedure rhythm: unchanged. 10:04:30 Post procedure instruction explained to patient.Patient verbalizes understanding. 10:04:31 Procedure and supply charges have been captured, reviewed, submitted and are correct. 10:04:56 Procedure Complication : No complications 10:04:58 Vital chart was stopped 10:04:59 See physician's report for complete and final results. 10:05:01 Report given to Pre/Post Procedure Room. 10:05:04 Patient transfered to Pre/Post Procedure Room with Stretcher. 10:05:06 Procedure ended. 10:05:06 Full Disclosure recording stopped 10:05:13 ACC-PCI Only Patient was given prescriptions, or instructed by Saúl Elise MD to start/continue the following medications upon discharge: Plavix 10:05:14 End room use (Document Last) Intervention Summary Intervention Notes Time ActionType Lesion and Equipment Action# Pressure Duration Attributes Used 9:50:44 Discard INTEGRITY RX Balloon 2.5 x 18 stent ([id number]) 9:51:33 Inflate Mid CX EUPHORA 2.5 1 19 00:13 balloon x 15 Balloon ([id number]) 9:53:38 Inflate Mid CX INTEGRITY RX 2 13 00:10 balloon 2.5 x 18 stent ([id number]) 10:02:20 Place stent Mid LAD INTEGRITY RX 1 17 00:10 2.25 x 18 stent ([id number]) Device Usage Item Name Manufacture Quantity Catalog Number Hospital Part Current Mini mal Lot# / Charge Number Stock Stock Serial# Code ACIST Acist 1 [id number] 400677 892298 005678 20 Syringe Medical (98577) Systems Inc Bag Decanter Microtek 1 2001S 722573 96575 104159 5 () Medical Inc. Medline Cath Medline 1 [id number] 298354 47021 561876 5 Pack ([id number]) DIAGNOSTIC St [place] 1 401667 107608 023359 017533 30 WIRE .035 260cm J wire (624545) ACIST Hand Acist 1 19792 695968 831384 202422 5 Control Medical (72978) Systems Inc ACIST Acist 1 08495 310131 569277 955718 5 Manifold Medical (30714) Systems Inc Tegaderm 4 x 3M 1 1626W 158048 963378 838150 5 4 (1626W) INFLATOR Plures Technologies 1 DN9553 668114 885870 022430 15 Axiom Education BasixCompak (TP1675) CHOICE PT [place] 2 [id number] 334275 711160 705014 5 Extra Scientific Support 182cm wire ([id number]) EXOSEAL 6Fr Cardinal 1 EX600 414383 880821 526314 10 (EX600) Health SHEATH 6FR Terumo 1 OSG853 223329 946609 597945 40 [place] (VIB653) GUIDE 6FR XB Cardinal 1 [id number] 248090 780079 120066 2 4.0 catheter Health (56298978) INTEGRITY RX Medtronic 1 [id number] 109464 456379 868801 5 [id number] 2.5 x 18 stent ([id number]) EUPHORA 2.5 Medtronic 1 [id number] 937724 853370 514349 5 [id number] x 15 Balloon (QGH0405M) WHISPER [place] 1 [id number] 828972 260195 619346 5 190cm wire Vascular ([id number]) INTEGRITY RX Medtronic 1 [id number] 094841 678857 331903 5 [id number] 2.25 x 18 stent ([id number]) Signature Audit [place] Stage Time Signature Unsigned Intra-Procedure 10/26/2018 Sadiq Hancock RT(R) 10:06:03 AM Signatures Monitor : Sadiq CAMPOS Signature : Date : Time : [facility] [address] [place] [address]
[~2018-10-26 07:33] MED LIST changes: +BAYER CHEWABLE81 MG PO; +FUROSEMIDE40 MG PO; +JANUVIA100 MG PO; +K-TAB10 MEQ PO; +PLAVIX75 MG PO; +TRUSOPT 2 % OPT10 ML EACH EYE
[2018-10-26 08:17] LABS: BASOPHILS 0.6 % (0-2); EOSINOPHILS 6.9 % (0-7); HEMATOCRIT 36.8 % (42.0-54.0); HEMOGLOBIN 11.9 g/dL (13.5-17.5); IMMATURE GRANULOCYTES 0.1 % (0-5); LYMPHOCYTES 18.1 % (15-50); MCH 26.6 pg (26.0-34.0); MCHC 32.3 g/dL (31.0-37.0); MCV 82.3 fL (80.0-100.0); MEAN PLATELET VOLUME 9.7 fL (7.4-10.4); MONOCYTES 8.8 % (2-11); NEUTROPHILS 65.5 % (40-80); PLATELET COUNT 200 10x3/uL (130-400); RBC 4.47 10x6/uL (4.20-6.10); RDW 15.8 % (11.5-14.5); WBC 6.8 10x3/uL (4.8-10.8)
[2018-10-26 08:18] VITALS: BP 120/77; Ht 177.8 cm; Wt 95.5 kg
[2018-10-26 08:27] LABS: ANION GAP 13.7 mmol/L (8-16); CALCIUM 8.8 mg/dL (8.5-10.1); CARBON DIOXIDE 25.6 mmol/L (21.0-32.0); CREATININE - SERUM 1.1 mg/dL (0.6-1.3); POTASSIUM - SERUM 4.3 mmol/L (3.5-5.1)
[2018-10-26 08:31] LABS: INR 1.33 (0.85-1.17); PROTIME 15.9 SECONDS (11.6-15.0)
--- NOTE | 2018-10-26 10:24 | NUR ---
RECIEVED TO ROOM VIA STRETCHER FROM BULK FILLER WITH 6 FR EXOSEAL L/GROIN CDI NO BLEEDING OR HEMATOMA NOTED. HR 75 BP 123/74 CHEST PAIN IS DENIED. INSTRUCTED PATIENT TO KEEP HEAD FLAT ON PILLOW WITH LLE STRAIGHT
--- NOTE | 2018-10-26 10:40 | NUR ---
PATIENT DENIED PAIN OR NEEDS VSS AND 6 FR EXOSEAL L/GROIN IS CDI NO BLEEDING NOTED. INSTRUCTED PATIENT TO KEEP HEAD FLAT ON PILLOW WITH LLE STRAIGHT
--- NOTE | 2018-10-26 10:50 | NUR ---
PATIENT RESTING QUIETLY WITH FAMILY AT BEDSIDE. VSS AND 6 FR EXOSEAL L/GROIN IS CDI
--- NOTE | 2018-10-26 11:15 | NUR ---
DR BRYSON AT BEDSIDE WITH FAMILY AND PATIENT 6 FR EXOSEAL R/GROIN IS CDI
--- NOTE | 2018-10-26 11:30 | NUR ---
18 MG INTEGRLIN BOLUS GIVEN BY ERMIAS AGUIAR RN AND 600 [address]VIX GIVEN ORDERED PER DR BRYSON
--- NOTE | 2018-10-26 11:56 | NUR ---
6 FR EXOSEAL L/GROIN REMAINS CDI WITH CHEST PAIN DENIED. FAMILY IS AT BEDSIDE. PATIENT IS TOLERATING PO FLUIDS WITH NAUSEA DENIED
--- NOTE | 2018-10-26 12:26 | NUR ---
PATIENT CONTINUES TO REST WITH EYES CLOSED. VSS AND 6 FR EXOSEAL TO L/GROIN IS CDI
--- NOTE | 2018-10-26 13:32 | NUR ---
REPOSITIONED TO [facility] UP 30 FOR COMFORT. 6 FR EXOSEAL L/GROIN IS CDI WITH NO BLEEDING NOTED
--- NOTE | 2018-10-26 13:48 | NUR ---
PIV REMOVED WITH DRESSING APPLIED. 6 FR EXOSEAL L/GROIN REMAINS CDI WITH CHEST PAIN DENIED
--- NOTE | 2018-10-26 14:13 | NUR ---
VERBAL AND WRITTEN DISCHARGE GONE OVER WITH PATIENT AND . BOTH VERBALIZED UNDERSTANDING. PATIENT LEFT VIA WC TO PARKING FOR TRANSPORT HOME CHEST PAIN DENIED AND L/GROIN IS CDI
--- NOTE | 2018-10-26 14:39 | HP ---
PATIENT: YARELIS WALTER MEDICAL RECORD: [id number] ACCOUNT: [id number] LOCATION:INDER : 38 ADMISSION DATE: 10/26/18 PCP: OLIVIA MON MD HISTORY AND PHYSICAL EXAMINATION ADMITTING DIAGNOSES: 1. Angina. 2. Coronary artery disease. 3. Recent percutaneous transluminal coronary angioplasty stent of the right coronary artery with concomitant disease of left anterior descending and circumflex. 4. Hypertension. 5. Hyperlipidemia. HISTORY OF PRESENT ILLNESS: Mr. Walter presents with anginal symptomatology, found to have 3-vessel coronary artery disease, underwent successful PTCA stent of the RCA. He is now brought back for PTCA stent of the LAD and circumflex. PHYSICAL EXAMINATION: GENERAL APPEARANCE: Well-nourished, well-developed, appears stated age. Level of distress, comfortable. PSYCHIATRIC: Mental status, alert, normal affect. Orientation, oriented to time, place and person. EYES: Lids and conjunctiva, noninjected. No discharge, no pallor. ENT: Lips, teeth, gums, normal dentition. Oropharynx, no cyanosis, no pallor. NECK: Carotid arteries, bilateral normal upstroke, no bruits, no thrills. JUGULAR VEINS: No jugular venous pressure or distention. CERVICAL LYMPH NODES: Nontender, nonenlarged. THYROID: Not enlarged. Nontender. No nodules. LUNGS: Respiratory effort, unlabored. CHEST: Normal curvature. No thoracic deformity. No chest wall tenderness. Percussion, resonant. Auscultation, clear. No wheezes, no rales, no rhonchi. CARDIOVASCULAR: Precordial exam, nondisplaced. No heaves or pericardial thrills. Rate and rhythm, regular. Heart sounds, normal S1, normal S2. No S3, no gallop, no rub. Systolic murmur, not heard. Diastolic murmur, not heard. EXTREMITIES: No cyanosis, no edema. Peripheral pulses, full and equal in all extremities, except as noted. No bruits appreciated. ABDOMEN: Soft, nondistended. Normal aorta. No bruit. Nontender. No masses. Liver, nontender, no hepatomegaly. Spleen, nontender, no splenomegaly. MUSCULOSKELETAL: No joint tenderness. No joint swelling. No erythema. NEUROLOGICAL: Normal gait, normal strength, normal tone. SKIN: Warm and dry. OVERALL IMPRESSION: Anginal symptomatology with significant disease of the left anterior descending and circumflex. We will proceed with percutaneous transluminal coronary angioplasty stent of the left anterior descending and circumflex. TRANSINT:[id number] Voice Confirmation ID: [id number] DOCUMENT ID: [id number] HISTORY AND PHYSICAL [id number] YARELIS WALTER JEFFREY MD at 1439 CC: [id number] DICTATION DATE: 10/26/18 1006 PLANNING COORDINATOR: 10/26/18 1150 DEP CLI 10/26/18 [facility] [address] [place] [address]
--- NOTE | 2018-10-26 14:39 | OP ---
PATIENT NAME: YARELIS WALTER MEDICAL RECORD: [id number] :38 LOCATION:D.CAT ADMISSION DATE: SURGEON: JUNI BRYSON MD DATE OF OPERATION: 10/26/2018 PROCEDURES: 1. PTCA stent LAD. 2. PTCA stent left circumflex. 3. Selective coronary angiography. INDICATION: Angina and coronary artery disease. PROCEDURE PERFORMED: After informed consent was obtained and after a detailed description of risks, benefits as well as alternative therapies, the patient elected to proceed with angiogram and angioplasty. The left femoral area was prepped and draped in normal sterile fashion. Left femoral artery was cannulated via modified Seldinger technique with placement of 6-Bulgarian sheath. All catheters exchanged through this sheath. FINDINGS: Left anterior descending has 80% stenosis in the mid distal vessel. This was addressed with a 2.25 x 18 mm Integrity. Result was 0% residual stenosis. Left circumflex has 95% stenosis in the mid vessel. This was addressed with a 2.5 x 18 mm Integrity. Result was 0% residual stenosis. OVERALL IMPRESSION: Successful PTCA stent of the LAD and circumflex, both going from 80% to 95% initial stenosis to 0% residual. TRANSINT:[id number] Voice Confirmation ID: [id number] DOCUMENT ID: [id number] JUNI BRYSON MD at 1439 CC: [id number] DICTATION DATE: 10/26/18 1009 GENETICS NURSE: 10/26/18 1306 DEP CLI 10/26/18 [place] [id number]
== END 2018-10-26 14:14 | disposition home or self-care (01) ==
LOC: D.CATH 07:33
PROVIDERS: ATTEND Internal Medicine Interventional Cardiology
DX: I25.119 Atherosclerotic heart disease of native coronary artery with unspecified angina pectoris (principal); Z95.5 Presence of coronary angioplasty implant and graft; I10 Essential (primary) hypertension; E78.5 Hyperlipidemia, unspecified; Z01.812 Encounter for preprocedural laboratory examination

== ENCOUNTER 2019-07-20 15:17 | Emergency (ER) | payer MEDICARE, OTHER ==
[~2019-07-20] VITALS: Ht 177.8 cm; Wt 83.6 kg
[2019-07-20 15:20] VITALS: Ht 177.8 cm; Wt 83.6 kg
[2019-07-20 16:07] LABS: BASOPHILS 0.8 % (0-2); EOSINOPHILS 1.1 % (0-7); HEMOGLOBIN 12.4 g/dL (13.5-17.5); IMMATURE GRANULOCYTES 0.2 % (0-5); LYMPHOCYTES 10.1 % (15-50); MCH 29.6 pg (26.0-34.0); MCHC 32.6 g/dL (31.0-37.0); MCV 90.7 fL (80.0-100.0); MEAN PLATELET VOLUME 9.6 fL (7.4-10.4); MONOCYTES 8.7 % (2-11); NEUTROPHILS 79.1 % (40-80); PLATELET COUNT 153 10x3/uL (130-400); RBC 4.19 10x6/uL (4.20-6.10); WBC 5.3 10x3/uL (4.8-10.8)
[2019-07-20 16:16] LABS: APTT 44.5 SECONDS (22.8-39.4); INR 2.37 (0.85-1.17); PROTIME 25.5 SECONDS (11.6-15.0)
[2019-07-20 16:24] LABS: CALC OSMOLALITY 277 mosm/kg (275-300); CALCIUM 8.7 mg/dL (8.5-10.1); CARBON DIOXIDE 26.8 mmol/L (21.0-32.0); CHLORIDE - SERUM 102 mmol/L (98-107); CREATININE - SERUM 1.2 mg/dL (0.6-1.3); GLUCOSE 154 mg/dL (74-106); POTASSIUM - SERUM 4.8 mmol/L (3.5-5.1); SODIUM 137 mmol/L (136-145); UREA NITROGEN 16 mg/dL (7-18); eGFR NON AFRICAN AMERICAN 62 mL/min (90-120)
[2019-07-20 16:31] LABS: ALBUMIN 3.6 g/dL (3.4-5.0); ALKALINE PHOSPHATASE 99 U/L (46-116); ALT (SGPT) 16 U/L (10-68); BILIRUBIN - TOTAL 1.63 mg/dL (0.2-1.3); CKMB 0.3 U/L (0.0-3.6); CREATINE KINASE 54 UL (21-232); MAGNESIUM - SERUM 1.9 mg/dL (1.8-2.4); PROTEIN - SERUM 7.2 g/dL (6.4-8.2)
[2019-07-20 16:32] LABS: TROPONIN-I < 0.017 ng/mL (0.000-0.060)
[2019-07-20] MEDS ORDERED: ZPAK PO (19:36)
[2019-07-20 20:02] VITALS: BP 112/66
== END 2019-07-20 20:00 | disposition home or self-care (01) ==
LOC: D.ER 15:17
PROVIDERS: Family Medicine
DX: B34.9 Viral infection, unspecified (principal); E11.9 Type 2 diabetes mellitus without complications; Z79.84 Long term (current) use of oral hypoglycemic drugs